=== PATIENT | male | born 1960 | race Caucasian/White ===

== ENCOUNTER 2018-09-21 04:09 | Emergency (ER) | payer OTHER ==
[2018-09-21 04:18] VITALS: BP 159/103; PULSE 76; TEMP 97.7; BMI 31.1
[2018-09-21] MEDS ORDERED: DOXYCYCLINE HYCLATE 100 MG CAPSULE PO ONE ×2 (04:21)
--- NOTE | 2018-09-21 04:26 | PDOC ---
History of Present Illness - General Chief Complaint: Bite Stated Complaint: BITE TO LEFT FORARM Time Seen by Provider: 09/21/18 04:21 - History of Present Illness Initial Comments: This 57-year-old man with borderline HTN/HLD presents with 12 hour history of mildly tender erythematous area of the left forearm. Patient describes first noticing area at approximately 4 PM, Wednesday (12 hours prior to presentation ). When he awakened early this morning to prepare to go to work, he noted that the area had grown in size. He does not recall any specific insect bite. He denies removing any ticks recently; he has no history of tick borne illness. He denies being in heavily wooded area recently. No recent fever/chills/ myalgias. Patient states that prior to arriving in the ER, he poured hydrogen peroxide on the area with central region subsequently becoming redder. No history of poor wound healing, colonization or infection with resistant organisms. ALLERGIES: Grapes/wine The patient currently smokes/ social alcohol/no other recreational drug use He works as an commercial journeyman electrician Past History - Past Medical History Allergies/Adverse Reactions: Allergies Allergy/AdvReac Type Severity Reaction Status Date / Time Grapes Allergy Swelling Uncoded 02/28/16 10:59 Home Medications: Ambulatory Orders NK [No Known Home Medication] 09/21/18 COPD: No Other medical history: DENIES - Suicide/Smoking/Psychosocial Hx Smoking History: Current every day smoker Have you smoked in the past 12 months: Yes If you are a former smoker, when did you quit?: 10 Information on smoking cessation initiated: Yes Hx Alcohol Use: Yes Drug/Substance Use Hx: No Review of Systems - Review of Systems Able to Perform ROS?: Yes Comments:: 12 point review of systems is negative except for what is noted in the history of present illness *Physical Exam - Vital Signs Last Vital Signs Temp Pulse Resp BP Pulse Ox 97.7 F 76 18 159/103 H 98 09/21/18 04:14 09/21/18 04:14 09/21/18 04:14 09/21/18 04:14 09/21/18 04:14 - Physical Exam Comments: GENERAL:Adult male, anxious but in no acute distress HEAD: Normal with no signs of trauma. EYES: PERRLA, EOMI, sclera anicteric, conjunctiva clear. LUNGS: Breath sounds equal, clear to auscultation bilaterally. No wheezes, and no crackles. HEART:Regular rate and rhythm, normal S1 and S2 without murmur, rub or gallop. NEUROLOGICAL: Cranial nerves II through XII grossly intact. Normal speech. No focal neurological deficits. SKIN: Left forearm,volar aspect - 3.5 cm diameter erythematous area mildly tender, moderately indurated; nonfluctuant, no lymphangitic streaking . No other rash evident Progress Note - Progress Note Progress Note: This 57-year-old man presents with 12 hour history of mildly painful, erythematous, moderately indurated area of his left forearm. No known current insect bite or previous sensitivity to insect toxin. No risk factors for tick exposure and no recent tick removal. Exam shows slightly tender, indurated, erythematous area without fluctuance or discharge. Differential diagnosis includes localized reaction to insect bite/sting , ECM , local trauma with surrounding cellulitis. Appearance/induration/mild tenderness was consistent with localized reaction to insect toxin rather than ECM. Because of the endemic nature of Lyme disease in this area and equivocal appearance of lesion, patient given doxycycline 200 mg by mouth now. He should return here or see his PMD if rash/lesion becomes larger, more painful, has discharge or lymphangitic streaking. Also, if he develops fever/chills/myalgias. Since he does not have significant pruritus, no antihistamine/steroid therapy warranted *DC/Admit/Observation/Transfer Diagnosis at time of Disposition: Rash - Discharge Dispostion Disposition: HOME Condition at time of disposition: Stable - Referrals Referrals: Vinay Sam MD [Primary Care Provider] - - Patient Instructions Printed Discharge Instructions: DI for Insect Bites and Stings Additional Instructions: Keep rash covered and protected as needed when working Use sunscreen or keep out of the sun today and tomorrow Return to ER or see your doctor if rash becomes larger, more painful or you see red streaking Return to ER or see your doctor if you develop fever/chills/body aches - Post Discharge Activity
== END 2018-09-21 04:34 | disposition home or self-care (01) ==
LOC: FER 04:09
DX: R21 Rash and other nonspecific skin eruption (principal); F17.210 Nicotine dependence, cigarettes, uncomplicated; I10 Essential (primary) hypertension; E78.5 Hyperlipidemia, unspecified
CPT/HCPCS: 99281-25